=== PATIENT | female | born 1990 | race African-American/Black ===

== ENCOUNTER 2020-10-27 11:57 | Emergency (ER) | payer SELFPAY ==
[~2020-10-27] VITALS: Ht 175.3 cm; Wt 118.0 kg
[2020-10-27 12:57] VITALS: BP 153/95
[2020-10-27] MEDS ORDERED: IV NORMAL SALINE 1000ML BAG 1,000 ML IV ONE (13:15)
[2020-10-27] MEDS ORDERED: ONDANSETRON PF 4 MG/2 ML VIAL. IV ONE (13:15)
--- NOTE | 2020-10-27 13:25 | ED.ADGEN ---
Past Medical History Past Medical History: Asthma, CHF, Hypertension, Pancreatitis Additional Past Medical Histor: Elevated liver function tests, alcoholism Additional Past Surgical Histo: Bilateral wrist surgeries Smoking Status: Current Every Day Smoker Alcohol Use: Heavy (Patient states she drinks all day every day) Drug Use: Marijuana (Daily) General Adult EDM: Chief Complaint: ABDOMINAL PAIN HPI: HPI: Patient is a 30 year old homeless AA female who presents to the emergency department with complaints of swelling in her upper abdomen for the last 9 years, lower abdominal pain, and concerns of . Patient reports that she currently has diarrhea/nausea/vomiting that began at 2:00 this morning. She denies any fever, cough, shortness of breath, palpitations, back pain, or rash. Patient reports that her menstrual cycle began 2 days ago and has been off and on for the last 2 days. Patient states she had unprotected intercourse and might be . Patient does not recall how many times she has vomited she is just been having vomiting and diarrhea all day. Patient reports a history of heavy alcohol use, smoking, and daily marijuana use. Patient reports she was supposed to be taking ranitidine but is not taking it because it causes liver cancer and she has been told her liver enzymes are elevated. Patient states her upper abdominal pain gets worse whenever she eats spicy food and it makes her vomit. She currently rates her pain a 10 out of 10 on the pain scale. Patient is verbally aggressive and rude during HPI.. Review of Systems: Review of Systems: Complete ROS is negative unless otherwise noted in HPI. Current Medications: Current Medications Medications (Trade) Dose Ordered Sig/[facility] Start Time Stop Time Status Last Admin Dose Admin Ondansetron HCl (Zofran) 4 mg 1X ONCE 10/27/20 13:15 10/27/20 13:18 DC Sodium Chloride 1,000 ml @ 1,000 mls/hr 1X ONCE 10/27/20 13:15 10/27/20 14:14 Allergies: Allergies: Allergies Coded Allergies Type Severity Reaction Last Updated Verified Penicillins Allergy Unknown 10/27/20 Yes Sulfa (Sulfonamide Antibiotics) Allergy Unknown 10/27/20 Yes Physical Exam: PE: See Above Constitutional: Well developed, well nourished, no acute distress, non-toxic anthony earance, morbidly obese. [] HENT: Normocephalic, atraumatic, bilateral external ears normal, oropharynx rita st, no oral exudates, nose normal. [] Eyes: PERRLA, EOMI, conjunctiva normal, no discharge. [] Neck: Normal range of motion, no stridor. [] Cardiovascular:Heart rate regular rhythm, no murmur [] Lungs & Thorax: Bilateral breath sounds clear to auscultation [] Abdomen: Bowel sounds normal, soft, no tenderness, no masses, no pulsatile masses, reports diffuse abdominal pain in all quadrants. [] Skin: Warm, dry, no erythema, no rash. [] Back: No tenderness, no CVA tenderness. [] Extremities: No tenderness, no cyanosis, no clubbing, ROM intact, no edema. [] Neurologic: Alert and oriented X 3, normal motor function, normal sensory function, no focal deficits noted. [] Psychologic: Affect agitated, judgement normal, mood aggressive and demanding EKG: EKG: [] Heart Score: C/O Chest Pain: No Radiology/Procedures: Radiology/Procedures: [] Course & Med Decision Making: Course & Med Decision Making Pertinent Labs and Imaging studies reviewed. (See chart for details) 1315- Pt starts yelling at nurse and myself, calling us stupid bitches and accusing us of being racist, security called to bedside. Pt left AMA and was escorted out of the ER by security officers. Mariana Disclaimer: Mariana Disclaimer: This electronic medical record was generated, in whole or in part, using a voice recognition dictation system. Departure Departure Impression: Primary Impression: Left against medical advice Disposition: LEFT AGAINST MEDICAL ADVICE MICHELE BOUDREAUX [employer] TECH[employer]ICIAN Oct 27, 2020 13:25
[2020-10-28] MEDS ORDERED: ALBU2.5V8 INH (23:00)
[2020-11-01] MEDS ORDERED: TRAM50TA PO (08:45)
== END 2020-10-27 13:23 | disposition left against medical advice (07) ==
LOC: ER 11:57
DX: R10.84 Generalized abdominal pain (principal); R11.2 Nausea with vomiting, unspecified; R19.7 Diarrhea, unspecified; I11.0 Hypertensive heart disease with heart failure; I50.9 Heart failure, unspecified; J45.909 Unspecified asthma, uncomplicated; F17.200 Nicotine dependence, unspecified, uncomplicated; F10.20 Alcohol dependence, uncomplicated; Z88.0 Allergy status to penicillin; Z88.2 Allergy status to sulfonamides; Y90.9 Presence of alcohol in blood, level not specified
CPT/HCPCS: 99281